=== PATIENT | male | born 2000 | race Two or more races ===

== ENCOUNTER 2024-04-25 02:58 | Emergency (ER) | payer MEDICAID, OTHER ==
[~2024-04-25] VITALS: Ht 182.9 cm; Wt 78.6 kg
[2024-04-25 03:14] VITALS: TEMP 98
[2024-04-25 03:22] VITALS: BP 133/68; PULSE 67; RESP 16; O2SAT 100
== END 2024-04-25 04:39 | disposition home or self-care (01) ==
LOC: EMS 02:58
DX: S60.222A Contusion of left hand, initial encounter (principal); W22.8XXA Striking against or struck by other objects, initial encounter; Y93.89 Activity, other specified; Y92.89 Other specified places as the place of occurrence of the external cause; Y99.0 Civilian activity done for income or pay
CPT/HCPCS: 99283